=== PATIENT | female | born 2000 ===

== ENCOUNTER 2023-11-15 19:54 | Inpatient (IN) | payer OTHER ==
[2023-11-15] MEDS ORDERED: Butorphanol 2 MG/ML SDV IVPUSH PRN (20:37)
[2023-11-15] MEDS ORDERED: Methylergonovine 0.2 MG/1 ML Amp IM PRN (20:37)
[2023-11-15] MEDS ORDERED: Sodium Chloride 0.9% 20 ML SDV IV PRN (20:37)
[2023-11-15] MEDS ORDERED: Water For Irrigation,Sterile 1,000 ML Container IRR PRN (20:37)
[2023-11-15] MEDS ORDERED: Carboprost Tromethamine 250 MCG/1 mL Vial IM PRN (20:37)
[2023-11-15] MEDS ORDERED: Lidocaine 1% 50 ML MDV INJECT PRN (20:37)
[2023-11-15] MEDS ORDERED: Misoprostol 200 MCG Tab PO PRN (20:37)
[2023-11-15] MEDS ORDERED: Tranexamic Acid IN NACL,ISO-OS 1,000 MG in Premix Bag 1 BAG IV PRN (20:37)
[2023-11-15] MEDS ORDERED: Sodium Chloride 0.9% 10 ML Syringe FLUSH PRN (20:37)
[2023-11-15] MEDS ORDERED: Sodium Chloride 0.9% 2.5 ML Syringe FLUSH PRN (20:37)
[2023-11-15] MEDS ORDERED: Oxytocin/0.9 % Sodium Chloride 30 UNIT/500 ML BAG IV SCH (20:45)
[2023-11-15 21:33] LABS: HEMATOCRIT 36.5 % (37.0-47.0); MEAN CORPUSCULAR HEMOGLOBIN 28.7 pg (28.0-32.0); MEAN CORPUSCULAR HGB CONC 32.9 g/dL (32.0-36.0); MEAN CORPUSCULAR VOLUME 87.3 fL (83.0-99.0); MEAN PLATELET VOLUME 12.8 fL (9.4-12.3); PLATELET COUNT,PLT 195 K/uL (150-400); RED BLOOD CELL COUNT 4.18 M/uL (4.10-5.30)
[2023-11-15] MEDS: Lactated Ringers 1,000 ML IV SCH (23:56)
[2023-11-15] MEDS: Nalbuphine 10 MG/1 ML Vial IVPUSH PRN (23:56)
[2023-11-16] MEDS: Oxytocin/0.9 % Sodium Chloride 30 UNIT/500 ML BAG IV SCH (00:05)
[2023-11-16] MEDS ORDERED: Terbutaline 1 MG/ML SDV SUBCUT PRN (00:05)
[2023-11-16] MEDS: Ropivacaine HCl/PF 400 MG in Premix Bag 1 BAG EPIDUR SCH (02:07)
[2023-11-16] MEDS ORDERED: Phenylephrine HCl In 0.9% NaCl 1 MG/10 ML Syringe ONE (02:09)
[2023-11-16] MEDS ORDERED: Ropivacaine HCl/PF 200 ML ONE (02:09)
[2023-11-16] MEDS ORDERED: dexmedeTOMIDine HCl 200 MCG/2 ML SDV ONE (02:09)
[2023-11-16] MEDS ORDERED: dexmedeTOMIDine HCl 200 MCG/2 ML SDV EPIDUR SCH (02:15)
[2023-11-16] MEDS ORDERED: ePHEDrine 50 MG/ML SDV IVPUSH PRN (02:15)
[2023-11-16] MEDS: Ondansetron 4 MG/2 ML SDV IVPUSH PRN (02:31)
[2023-11-16] MEDS: Phenylephrine HCl In 0.9% NaCl 1 MG/10 ML Syringe IVPUSH PRN (03:00)
[2023-11-16] MEDS: ePHEDrine 50 MG/ML SDV IVPUSH PRN (04:50)
[2023-11-16] MEDS ORDERED: fentaNYL 100 MCG/2 ML SDV ONE (10:43)
[2023-11-16] MEDS ORDERED: Bupivacaine 0.25% 10 ML SDV ONE (10:44)
[2023-11-16] MEDS ORDERED: Tranexamic Acid IN NACL,ISO-OS 1,000 MG in Premix Bag 1 BAG IV PRN (13:06)
[2023-11-16] MEDS ORDERED: Benzocaine/Menthol 20%-0.5% Spray 78 GM Cannister TOP PRN (13:06)
[2023-11-16] MEDS ORDERED: Lanolin 100% Cream 7 GM Tube TOP PRN (13:06)
[2023-11-16] MEDS ORDERED: Methylergonovine 0.2 MG/1 ML Amp IM PRN (13:06)
[2023-11-16 14:14] LABS: PH,UMBILICAL ARTERIAL 7.169 (7.18-7.38); PH,UMBILICAL VENOUS 7.314 (7.25-7.45)
[2023-11-16] MEDS: Ibuprofen 800 MG Tab PO PRN (16:11)
[2023-11-17] MEDS: Acetaminophen 500 MG Tab PO PRN (04:24)
[2023-11-17 06:19] LABS: HEMOGLOBIN 10.2 g/dL (12.0-16.0)
[2023-11-17] MEDS: Prenatal Multivitamin with Calcium/Folic Acid/Iron Tab PO SCH (08:42)
[2023-11-17] MEDS: Docusate Sodium 100 MG Cap PO PRN (08:42)
[2023-11-17] MEDS: Witch Hazel Medicated Pads 40/Jar TOP PRN (08:42)
== END 2023-11-17 17:28 | disposition home or self-care (01) | DRG 807 ==
LOC: MW.OBCHECK 19:54 → MW.OB 19:56 → MW.OBCHECK 20:36 → MW.OB 20:37 → OBSVTOIN 11-16 13:06 → MW.OB 11-16 17:11
PROVIDERS: ADMIT Obstetrics & Gynecology; ATTEND Obstetrics & Gynecology
PROC: 10E0XZZ Delivery of Products of Conception, External Approach (ICD-10-PCS; principal; 2023-11-16)
PROC: 0KQM0ZZ Repair Perineum Muscle, Open Approach (ICD-10-PCS; 2023-11-16)
DX: O42.02 Full-term premature rupture of membranes, onset of labor within 24 hours of rupture (principal); Z37.0 Single live birth; Z3A.38 38 weeks gestation of pregnancy; O76 Abnormality in fetal heart rate and rhythm complicating labor and delivery
CPT/HCPCS: 36415; 51702; 59025; 59409; 82803; 85014; 85018; 85027; 86592; 86850; 86900; 86901; A9270-GY; J2300; J2371; J2405; J2590; J2795; J3010; J3490; J7120